=== PATIENT | female | born 1935 | race African-American/Black ===

== ENCOUNTER 2023-12-17 04:36 | Inpatient (IN) | payer OTHER ==
[2023-12-13 11:27] VITALS: BMI 24.0
[~2023-12-17 04:36] MED LIST: ONDANSETRON 4 MG/2 ML VIAL IVPUSH PRN
[2023-12-17] MEDS ORDERED: ACETAMINOPHEN INJECTION 100 ML IVPB ONE (09:00)
[2023-12-17] MEDS ORDERED: LIDOCAINE HCL 1%, 10 MG/ML (20ML VIAL) ONE (10:21)
[2023-12-17] MEDS ORDERED: DEXAMETHASONE SOD PHOSPHATE 4 MG/1 ML VIAL ONE (10:47)
[2023-12-17] MEDS ORDERED: ONDANSETRON 4 MG/2 ML VIAL ONE (10:47)
[2023-12-17] MEDS ORDERED: PROPOFOL 20 ML ONE (10:47)
[2023-12-17] MEDS ORDERED: FENTANYL CITRATE/PF 50 MCG/ML VIAL ONE ×4 (10:50→14:27)
[2023-12-17] MEDS ORDERED: MIDAZOLAM HCL 2 MG/2 ML SINGLE DOSE VIAL ONE (11:33)
[2023-12-17] MEDS ORDERED: ceFAZolin SODIUM 1 GM VIAL ONE (11:56)
[2023-12-17] MEDS: ceFAZolin SODIUM 1 GM VIAL IVPB ONE (12:05)
[2023-12-17] MEDS: LIDOCAINE HCL 1%, 10 MG/ML (50 mL VIAL) SQ ONE (12:12)
[2023-12-17] MEDS ORDERED: ONDANSETRON 4 MG/2 ML VIAL IVPB PRN (13:18)
[2023-12-17] MEDS ORDERED: HYDROmorphone HCl 2 MG/ML VIAL IVPB PRN ×2 (13:26→13:35)
[2023-12-17] MEDS: LACTATED RINGERS SOLUTION 1,000 ML/1,000 ML INFUS.BAG IV SCH (13:30)
[2023-12-17] MEDS ORDERED: ACETAMINOPHEN 325 MG TABLET (FP) PO PRN (13:45)
[2023-12-17] MEDS ORDERED: hydrALAZINE HCL 20 MG/ML VIAL ONE (14:19)
[2023-12-17] MEDS: hydrALAZINE HCL 20 MG/ML VIAL IVPUSH ONE ×2 (14:21→14:27)
[2023-12-17 15:46] VITALS: RESP 18
[2023-12-17] MEDS: oxyCODONE HCL 5 MG TABLET PO PRN (16:58)
[2023-12-17] MEDS: CEFAZOLIN 1 GM in DEXTROSE 5%-WATER - 50 ML IVPB SCH ×2 (19:48→20:04)
[2023-12-18] MEDS: ACETAMINOPHEN 500 MG TABLET (FP) PO PRN (01:36)
[2023-12-18] MEDS: CARVEDILOL 3.125 MG TABLET (FP) PO ONE (04:21)
[2023-12-18] MEDS: CARVEDILOL PO SCH (11:03)
[2023-12-18] MEDS: CARVEDILOL 25 MG TABLET (FP) PO SCH (12:18)
[2023-12-18] MEDS: CARVEDILOL 6.25 MG TABLET (FP) PO SCH (12:18)
[2023-12-18 12:43] VITALS: PULSE 73; TEMP 98.9
[2023-12-18 12:44] VITALS: BP 114/58
== END 2023-12-18 14:25 | disposition home or self-care (01) | DRG 581 ==
LOC: J2C 04:36 → EDSTATUS 11:30 → J8W 15:29
PROVIDERS: ADMIT Surgery; ATTEND Surgery
PROC: 0HBT0ZZ Excision of Right Breast, Open Approach (ICD-10-PCS; principal; 2023-12-17 11:30)
PROC: 07T50ZZ Resection of Right Axillary Lymphatic, Open Approach (ICD-10-PCS; 2023-12-17 11:30)
DX: C50.911 Malignant neoplasm of unspecified site of right female breast (principal)
CPT/HCPCS: 86850; 86900; 86901; 88307-TC; 94010; 94760; J0131